=== PATIENT | male | born 1980 | race Hispanic/Latino ===

== ENCOUNTER 2017-12-11 12:11 | Day surgery (SDC) | payer BC ==
[~2017-12-11] VITALS: Ht 195.6 cm; Wt 101.6 kg
[~2017-12-11 12:11] MED LIST: ALLEGRA-D 2424 HOUR PO; FLONASE AL50 MCG/ACT
[2017-12-11 16:35] VITALS: BP 115/76
== END 2017-12-11 16:45 | disposition home or self-care (01) | DRG 392 ==
LOC: ENDO 12:11 → ORM 13:00 → ENDO 16:15 → ORM 20:45 → ENDO 21:15
PROVIDERS: ATTEND Internal Medicine Gastroenterology
PROC: 0DBE8ZX Excision of Large Intestine, Via Natural or Artificial Opening Endoscopic, Diagnostic (ICD-10-PCS; principal; 2017-12-11)
DX: R19.7 Diarrhea, unspecified (principal); K64.4 Residual hemorrhoidal skin tags; K64.8 Other hemorrhoids; K59.00 Constipation, unspecified; K21.9 Gastro-esophageal reflux disease without esophagitis; Z80.0 Family history of malignant neoplasm of digestive organs